=== PATIENT | male | born 2000 | race African-American/Black ===

== ENCOUNTER 2018-08-07 19:15 | Emergency (ER) | payer MEDICAID ==
[~2018-08-07] VITALS: Ht 190.5 cm; Wt 91.0 kg
[2018-08-07 21:27] VITALS: BP 126/58
== END 2018-08-08 00:56 | disposition home or self-care (01) ==
LOC: ER 19:15
DX: H00.015 Hordeolum externum left lower eyelid (principal)
CPT/HCPCS: 99283